=== PATIENT | female | born 1960 | race Caucasian/White ===

== ENCOUNTER → 2020-10-12 09:18 | Outpatient (CLI) | payer OTHER, SELFPAY ==
[2020-10-12 11:09] LABS: TSH w/ Reflex to FT4 0.05 uIU/mL (0.47-4.68)
[2020-10-12 11:44] LABS: Free T4, Direct Thyroxine 1.55 ng/dL (0.78-2.19)
== END ==
PROVIDERS: PCP Family Medicine; Referring Provider Family Medicine; Visit Provider Family Medicine
DX: E03.9 Hypothyroidism, unspecified (principal)
CPT/HCPCS: 36415; 84439; 84443